=== PATIENT | male | born 1960 | race Caucasian/White ===

== ENCOUNTER 2021-01-01 19:39 | Emergency (ER) | payer SELFPAY ==
--- NOTE | 2021-01-01 19:57 | PC.NURSE ---
called in to triage. no response. will try again.
[2021-01-01 20:04] VITALS: BP 128/88; BP 140/85; PULSE 69; PULSE 74; RESP 16; TEMP 36.2; O2SAT 93; O2SAT 96; BMI 20.5
[2021-01-01 22:00] VITALS: BP 121/81; PULSE 67; RESP 14; O2SAT 97
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
--- NOTE | 2021-01-02 01:30 | PC.NURSE ---
Pt rousable to verbal stimuli. airway patent. pt denies needs.
--- NOTE | 2021-01-02 02:08 | ED_ITS ---
HPI - Alcohol General Chief Complaint: ETOH/Substance Use Stated Complaint: etoh Time Seen by Provider: 01/02/21 00:05 Source: patient Mode of arrival: ambulatory Limitations: no limitations History of Present Illness HPI narrative: 60-year-old male who presents emergency department for evaluation alcohol intoxication. The patient states that he was drinking a large amount of alcohol today and he started drinking 11:00 a.m.. The patient initially refused to answer questions but he appeared acutely intoxicated. The patient states that he is homeless. The patient told me that the is not interested in getting into a detox program. He denied fever, chills, chest pain, shortness of breath, abdominal pain, nausea, vomiting, changes bowel movements. Related Data Allergies Allergy/AdvReac Type Severity Reaction Status Date / Time Sulfa (Sulfonamide Allergy Unknown Verified 01/01/21 20:08 Antibiotics) Review of Systems Review of Systems: Yes all other systems are reviewed and are negative PMFSH Past Medical History [facility] Narrative: Social history: Patient states that he is homeless. He does smoke cigarettes. He states that he drinks alcohol daily. He denies drug use. Medical History Asthma Social History Social History Advance Directives: No Advance Directives Information Provided: No Physical Exam Vital Signs: Vital Signs: Last Vital Signs Temp 97.2 F 01/01/21 20:04 Pulse 67 01/01/21 22:00 Resp 14 01/01/21 22:00 BP 121/81 01/01/21 22:00 Pulse Ox 97 01/01/21 22:00 Body Mass Index 20.5 Const: Other: Disheveled, acutely intoxicated male, initially uncooperative and would not answer questions. General: cooperative and no acute distress Orientation/consciousness: oriented to person and oriented to place Limitations: no limitations HENMT: Head: Yes normal to inspection, Yes normocephalic and Yes atraumatic Ears: external ears normal General nose exam: Normal external nose present Face and sinus: Yes normal facial exam Mouth: Normal oral and palatal mucosa present Throat: Yes posterior oropharynx normal Eyes: General: appearance normal, both eyes and all related structures Pupils: Equal, round and reactive pupils present Neck: Neck: Yes normal visual inspection, Yes no lymphadenopathy, Yes trachea midline and Yes supple Chest: Chest palpation & inspection: normal inspection of the chest and normal palpation of entire chest wall Resp: Effort & Inspection: normal respiratory effort and able to speak in complete sentences Auscultation: clear to auscultation bilaterally Cardio: Rate: regular rate Rhythm: regular rhythm Heart sounds: S1 normal heart sound present, S2 normal heart sound present and no murmurs GI: Inspection: Yes normal to inspection Palpation (GI): Soft to palpation, nontender and no guarding Auscultation: normal bowel sounds : General: Yes no CVA tenderness Back/Spine/Pelvis: Back: no CVA tenderness Skin: General skin exam: no rashes or lesions noted Neuro: General: oriented to person and oriented to place Cranial nerves: Yes CN's II-XII intact bilaterally and Yes Equal, round and reactive pupils present Motor exam (neuro): 5/5 motor strength present throughout Extrem: General: Yes normal to inspection Psych: Other: Unkempt disheveled, acutely intoxicated Course Course Course Narrative: 60-year-old male who presents emergency department for eval uation of acute alcohol intoxication. Patient was obviously intoxicated on initial presentation and refused to answer questions. Patient eventually told me that he was drinking alcohol and that he is homeless. The patient will be kept in the emergency department until he is sober. 2:15 a.m.: The patient is awake however he falls back asleep and refuses to answer questions. At this point, the patient will be kept in the emergency department in the morning and then discharged in the morning. Physician observation started at 2:15 a.m. Patient placed in physician observation because acute alcohol intoxication and need for observation to sober. Neuro: nonfocal, CV RRR, Lungs clear. The patient was turned over to my colleague, Dr. Yin Preston will re-evaluate the patient in the morning and determine disposition. Discharge Plan Discharge Clinical Impression: Alcoholic intoxication, Homeless Patient Disposition: Home, Self-Care Instructions: Abuse of Alcohol (ED) Additional Instructions: You should consider getting into detox program to help with your alcohol use disorder. Follow-up with your doctor in 2 days. Please return to the emergency department if your symptoms get worse or if you develop any symptoms that are concerning to you.
[2021-01-02 04:07] VITALS: BP 116/74; PULSE 88; RESP 16; O2SAT 97
== END 2021-01-02 05:58 | disposition home or self-care (01) ==
PROVIDERS: Emergency Provider Emergency Medicine Emergency Medical Services
DX: F10.220 Alcohol dependence with intoxication, uncomplicated (principal); Y90.9 Presence of alcohol in blood, level not specified; Z59.0 Homelessness; F17.210 Nicotine dependence, cigarettes, uncomplicated
CPT/HCPCS: 99283; 99284

== ENCOUNTER 2021-01-02 19:04 | Emergency (ER) | payer SELFPAY ==
[2021-01-02 19:14] VITALS: BP 119/73; PULSE 86; RESP 16; TEMP 35.7; O2SAT 94; BMI 24.0
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
--- NOTE | 2021-01-03 01:43 | PC.NURSE ---
Patient woke up and asked for urinal. Upset that he was asked to walk to bathroom. Ambulates with steady gait. calling staff Lia.
== END 2021-01-03 01:43 | disposition home or self-care (01) ==
PROVIDERS: Emergency Provider Emergency Medicine
DX: F10.220 Alcohol dependence with intoxication, uncomplicated (principal); Y90.9 Presence of alcohol in blood, level not specified; Z59.0 Homelessness
CPT/HCPCS: 99283

== ENCOUNTER 2021-01-05 08:51 | Emergency (ER) | payer SELFPAY ==
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
[2021-01-05 09:06] VITALS: BP 130/82; PULSE 70; O2SAT 94
[2021-01-05 09:13] VITALS: BP 114/75; PULSE 62; RESP 16; TEMP 36.1; O2SAT 99; BMI 22.0
--- NOTE | 2021-01-05 09:52 | PC.NURSE ---
THIS RN IS ATTEMPTING TO GIVE THE PT HIS FOOD MERRY, PT REFUSING TO EAT AT THIS TIME, REFUSING TO TALK TO THIS RN, HAS HIS BLANKET OVER HIS HEAD
[2021-01-05 10:53] LABS: MANUAL DIFF FLAG NO
[2021-01-05 10:54] LABS: Basophils Percent Auto 0.8 % (0-2); Eosinophils Absolute Auto 0.1 X10*3/uL (0.0-0.4); Eosinophils Percent Auto 1.6 % (0-4); Hematocrit 41.9 % (42-52); Hemoglobin 13.5 g/dl (14.0-18.0); Imm Gran Abs Auto 0.01 X10*3/uL (0.00-0.03); Imm Gran Pct Auto 0.3 % (0.0-0.4); Lymphocytes Absolute Auto 1.2 X10*3/uL (1.2-4.9); Mean Corpuscular HGB Conc 32.2 g/dl (31.0-36.0); Mean Corpuscular Hemoglobin 28.8 pg (27.0-33.0); Mean Corpuscular Volume 89.3 fL (80-98); Mean Platelet Volume 8.4 fL (9.4-12.4); Monocytes Absolute Auto 0.4 X10*3/uL (0.1-1.2); Monocytes Percent Auto 10.4 % (2-11); Neutrophils Absolute Auto 2.1 X10*3/uL (2.0-8.3); Neutrophils Percent Auto 54.9 % (45-73); Platelet Count 232 X10*3/uL (160-400); Red Blood Count 4.69 X10*6/uL (4.60-5.80); Red Cell Distribution Width 16.9 % (11.0-16.0); White Blood Count 3.8 X10*3/uL (4.8-10.8)
[2021-01-05 11:16] LABS: COVID-19 Test Negative (Negative); IDNOW Serial# 9DD0AD1C
[2021-01-05 11:21] LABS: Ethanol 106 mg/dL
[2021-01-05 11:26] LABS: Alanine Aminotransferase 33 U/L (0-40); Albumin Level 3.9 g/dL (3.5-5.0); Alkaline Phosphatase 133 U/L (39-117); Anion Gap 20 (12-20); Aspartate Amino Transferase 81 U/L (5-37); Bilirubin Direct 0.4 mg/dL (0.0-0.5); Bilirubin Total 0.8 mg/dL (0.0-1.0); Blood Urea Nitrogen 6 mg/dL (9-16); Carbon Dioxide 19 mmol/L (22-29); Chloride 106 mmol/L (96-108); Creatinine Clr Calc Pharmacy 109.3; Estimated Glomerular Filt Rate > 60; Glucose Random 72 mg/dL (60-115); Magnesium 1.8 mg/dL (1.6-2.6); Potassium 3.5 mmol/L (3.3-5.1); Sodium 141 mmol/L (135-145); Total Protein 8.6 g/dL (6.5-8.0)
[2021-01-05 11:42] VITALS: RESP 18
--- NOTE | 2021-01-05 11:43 | PC.NURSE ---
patient sleeping, wakes to stimulus, refusing to answer questions and turns away, rr 18, will continue to monitor.
[2021-01-05 13:44] VITALS: BP 133/96; PULSE 77; RESP 18; TEMP 36.6; O2SAT 98
== END 2021-01-05 16:32 | disposition home or self-care (01) ==
PROVIDERS: Emergency Provider Emergency Medicine
DX: F10.129 Alcohol abuse with intoxication, unspecified (principal); Y90.5 Blood alcohol level of 100-119 mg/100 ml; I25.10 Atherosclerotic heart disease of native coronary artery without angina pectoris; F17.200 Nicotine dependence, unspecified, uncomplicated; Z71.6 Tobacco abuse counseling; Z79.899 Other long term (current) drug therapy; Z20.822 Contact with and (suspected) exposure to COVID-19; Z71.41 Alcohol abuse counseling and surveillance of alcoholic
CPT/HCPCS: 36415; 80048; 80076; 82077; 83735; 85025; 87635; 99284

== ENCOUNTER 2021-01-06 20:14 | Emergency (ER) | payer SELFPAY ==
[2021-01-06 20:45] VITALS: BP 110/70; PULSE 72; RESP 16; TEMP 36; O2SAT 95; BMI 22.5
--- NOTE | 2021-01-06 21:10 | ED.ALCOHOL ---
HPI - Alcohol General Chief Complaint: ETOH/Substance Use Stated Complaint: etoh Time Seen by Provider: 01/06/21 21:10 Source: patient and EMS Mode of arrival: EMS Limitations: altered mental status History of Present Illness MD complaint: alcohol intoxication Last drink: Just prior to admission Chronic alcohol use: Yes Previous visits for alcohol intoxication: Yes Recent trauma: No Associated symptoms: denies other symptoms Treatments prior to arrival: none Related Data Allergies Allergy/AdvReac Type Severity Reaction Status Date / Time Sulfa (Sulfonamide Allergy Unknown Verified 01/01/21 20:08 Antibiotics) Review of Systems Review of Systems: ROS unable to be obtained due to ETOH intoxication [facility] Past Medical History Attestation statement: The following information was validated with the patient. Medical History Alcoholism Asthma Coronary artery disease Surgical History Hx of CABG Social History Social History Housing: Homeless Alcohol intake: current Patient Tobacco Use Status: Current everyday Tobacco user Advance Directives: No Physical Exam Vital Signs: Vital Signs: Last Vital Signs Temp 96.8 F 01/06/21 20:45 Pulse 72 01/06/21 20:45 Resp 16 01/07/21 00:00 BP 110/70 01/06/21 20:45 Pulse Ox 95 01/06/21 20:45 Body Mass Index 22.5 Appearance: Alert. Oriented X3. No acute distress. ETOH odor, unkempt Eyes: Pupils equal, round and reactive to light. ENT: Pharynx normal. Neck: Normal inspection. Neck supple. CVS: Normal heart rate and rhythm. Pulses normal. Respiratory: No respiratory distress. Breath sounds normal. Abdomen: Soft and nontender. Skin: Skin warm and dry. Normal skin color. Normal skin turgor. Extremities: No lower extremity edema. No calf ttp Neuro: Oriented X 3. No motor deficit. No sensory deficit. Course Course Course Narrative: signed out pending clinical sobriety MDM - Alcohol MDM Narrative Medical decision making narrative: 60 yo male with ETOH abuse no trauma reported he is calm and cooperative, new to the area - no SI/HI will observe until clinically sober, seen for the same this past week. Discharge Plan Discharge Clinical Impression: Alcoholic intoxication Qualifiers: Complication of substance-induced condition: uncomplicated Qualified Code(s): F10.920 - Alcohol use, unspecified with intoxication, uncomplicated Patient Disposition: Home, Self-Care Instructions: Alcohol Intoxication (ED), Abuse of Alcohol (ED) Additional Instructions: return to ED for any worsening symptoms or concerns
[2021-01-07] VITALS: RESP 16
[2021-01-07 02:00] VITALS: RESP 16
[2021-01-07 02:26] VITALS: BP 119/77; PULSE 72; RESP 16; TEMP 36.8; O2SAT 97
[2021-01-07 04:00] VITALS: RESP 16
== END 2021-01-07 05:58 | disposition home or self-care (01) ==
PROVIDERS: Emergency Provider Emergency Medicine
DX: F10.120 Alcohol abuse with intoxication, uncomplicated (principal); Y90.9 Presence of alcohol in blood, level not specified; Z59.0 Homelessness
CPT/HCPCS: 99282; 99285

== ENCOUNTER 2021-01-07 17:37 | Emergency (ER) | payer SELFPAY ==
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
[2021-01-07 17:59] VITALS: BP 90/60; BP 96/63; PULSE 76; PULSE 77; RESP 16; TEMP 36.3; O2SAT 100; O2SAT 98; BMI 25.0
== END 2021-01-07 22:24 | disposition home or self-care (01) ==
PROVIDERS: Emergency Provider Internal Medicine
DX: F10.220 Alcohol dependence with intoxication, uncomplicated (principal); Y90.9 Presence of alcohol in blood, level not specified
CPT/HCPCS: 99283

== ENCOUNTER 2021-01-10 15:21 | Emergency (ER) | payer SELFPAY ==
[2021-01-10 15:31] VITALS: BP 110/75; PULSE 85; O2SAT 95
[2021-01-10 15:32] VITALS: BMI 20.3
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
--- NOTE | 2021-01-10 18:16 | ED.ALCOHOL ---
HPI - Alcohol General Chief Complaint: ETOH/Substance Use Stated Complaint: ETOH Time Seen by Provider: 01/10/21 18:11 History of Present Illness HPI narrative: 60-year-old history of alcohol abuse found on the street. Patient has no specific complaints. Related Data Allergies Allergy/AdvReac Type Severity Reaction Status Date / Time Sulfa (Sulfonamide Allergy Unknown Verified 01/07/21 17:58 Antibiotics) Review of Systems Review of Systems: No chest pain or shortness of breath no trauma. All systems reviewed otherwise negative [facility] Past Medical History Medical History Alcoholism Asthma Coronary artery disease Surgical History Hx of CABG Social History Social History Housing: Homeless Alcohol intake: current Patient Tobacco Use Status: Current everyday Tobacco user Advance Directives: No Advance Directives Information Provided: No Physical Exam Vital Signs: Vital Signs: Last Vital Signs Temp 98 F 01/10/21 18:22 Pulse 97 01/10/21 18:22 Resp 17 01/10/21 18:22 BP 168/98 H 01/10/21 18:22 Pulse Ox 98 01/10/21 18:22 Body Mass Index 20.3 Appearance: Alert. Oriented X3. No acute distress. Eyes: Pupils equal, round and reactive to light. ENT: Pharynx normal. Neck: Normal inspection. Neck supple. No lymph nodes noted. No crepitus CVS: Normal heart rate and rhythm. Pulses normal. Normal S1 and S2 Respiratory: No respiratory distress. Breath sounds normal. No Wheezing. No rales Abdomen: Soft and nontender. No rigidity. No distention. good BS x4 Skin: Skin warm and dry. Normal skin color. Normal skin turgor. Extremities: No lower extremity edema. Neurovascular intact to all extremities. No Lacerations. No Rash Neuro: Oriented X 3. No motor deficit. No sensory deficit. Moving all extermities. No slurred speech MDM - Alcohol MDM Narrative Medical decision making narrative: Patient awaiting sobering Patient awake alert wants to leave. Ambulatory without any difficulties. Not suicidal not homicidal. Discharge Plan Discharge Clinical Impression: Alcoholic intoxication Patient Disposition: Home, Self-Care Instructions: Alcohol Intoxication (ED), Alcohol Use Disorder (ED), Abuse of Alcohol (ED) Referrals: Physician,Unknown [Primary Care Provider] - 2 days (Please stop drinking. Please go to detox.)
[2021-01-10 18:22] VITALS: BP 168/98; PULSE 97; RESP 17; TEMP 36.6; O2SAT 98
--- NOTE | 2021-01-10 18:42 | PC.NURSE ---
patient being loud and verbally abusive to staff, attempted to leave, security was called to bring patient back to bed, pt continues to yell wanting to discharge.
== END 2021-01-10 18:55 | disposition home or self-care (01) ==
PROVIDERS: Emergency Provider Emergency Medicine Emergency Medical Services
DX: F10.220 Alcohol dependence with intoxication, uncomplicated (principal); Y90.9 Presence of alcohol in blood, level not specified
CPT/HCPCS: 99282; 99283

== ENCOUNTER 2021-01-10 23:15 | Emergency (ER) | payer SELFPAY ==
[2021-01-10 23:23] VITALS: BP 112/64; BP 118/76; PULSE 102; PULSE 80; RESP 16; O2SAT 95; O2SAT 97; BMI 20.9
[2021-01-11] VITALS: RESP 16
--- NOTE | 2021-01-11 00:43 | ED.ALCOHOL ---
HPI - Alcohol General Chief Complaint: ETOH/Substance Use Stated Complaint: ETOH Time Seen by Provider: 01/11/21 00:42 Source: EMS Mode of arrival: EMS History of Present Illness HPI narrative: Patient with alcohol abuse intoxicated was just here and discharged at 20:00 came back by ambulance for being intoxicated walking at a gas station. No signs of injury or fall patient intoxicated but alert Related Data Allergies Allergy/AdvReac Type Severity Reaction Status Date / Time Sulfa (Sulfonamide Allergy Unknown Verified 01/07/21 17:58 Antibiotics) Review of Systems Review of Systems: Patient refused to answer Yes Unobtainable due to mental status PMFSH Past Medical History Medical History Alcoholism Asthma Coronary artery disease Surgical History Hx of CABG Social History Social History Housing: Homeless Alcohol intake: current Alcohol intake frequency: 3 or more drinks per day Alcohol type: hard liquor Patient Tobacco Use Status: Current everyday Tobacco user Smoked in Last 30 Days: No Use of substances other than those prescribed or required for medical reasons: No Advance Directives: No Advance Directives Information Provided: No Physical Exam Vital Signs: Vital Signs: Last Vital Signs Pulse 102 H 01/10/21 23:23 Resp 16 01/11/21 00:00 BP 112/64 01/10/21 23:23 Pulse Ox 95 01/10/21 23:23 Body Mass Index 20.9 Appearance: Intoxicated ,opening his eyes refused to answer, no acute distress. Eyes: PERRLA, No Nystagmus HEENT: Pharynx normal. Oral Mucosa moist intoxicated AT, [place] Neck: Normal inspection. Neck supple. CVS: Normal heart rate and rhythm. Pulses normal. Respiratory: No respiratory distress. Equal air entry bilateral, no wheezing/rales/rhonchi Abdomen: Soft and nontender. Bowel sounds are present, Skin: Skin warm and dry. Normal skin color. Normal skin turgor. Extremities: No lower extremity edema. No calf tenderness Neuro: Oriented X 3. No motor deficit. MDM - Alcohol MDM Narrative Medical decision making narrative: Patient was sleeping in the bed when he came and got up went to the bathroom without any assistance and was trying to smoke at this time patient has stable vitals with discharge patient home Differential Diagnosis Differential diagnosis: Likely alcohol intoxication Discharge Plan Discharge Clinical Impression: Alcoholic intoxication Qualifiers: Complication of substance-induced condition: uncomplicated Qualified Code(s): F10.920 - Alcohol use, unspecified with intoxication, uncomplicated Patient Disposition: Home, Self-Care Instructions: Alcohol Intoxication (ED) Additional Instructions: Follow with detox Interventions: ED Discharge Assessment Last Done: 01/11/21 00:48 Discharge Date/Time: 01/11/21 00:51
== END 2021-01-11 00:51 | disposition home or self-care (01) ==
LOC: HO.ED 01-11 00:45
PROVIDERS: Emergency Provider Internal Medicine
DX: F10.920 Alcohol use, unspecified with intoxication, uncomplicated (principal); I25.10 Atherosclerotic heart disease of native coronary artery without angina pectoris; Y90.9 Presence of alcohol in blood, level not specified; F17.200 Nicotine dependence, unspecified, uncomplicated; Z71.6 Tobacco abuse counseling; Z59.0 Homelessness
CPT/HCPCS: 99282; 99284

== ENCOUNTER 2021-01-11 12:45 | Emergency (ER) | payer SELFPAY ==
[2021-01-11 13:01] VITALS: BP 123/82; BP 133/76; PULSE 79; PULSE 86; RESP 16; TEMP 37.2; O2SAT 96; O2SAT 98; BMI 24.9
--- NOTE | 2021-01-11 13:26 | PC.NURSE ---
Patient is asleep on stretcher in no distress.
--- NOTE | 2021-01-11 15:27 | ED.ALCOHOL ---
HPI - Alcohol General Chief Complaint: ETOH/Substance Use Stated Complaint: HOT, ETOH Time Seen by Provider: 01/11/21 14:43 History of Present Illness HPI narrative: According to the triage nurse, the patient was found in an intersection near the hospital. Patient admitted to using alcohol, drank beer today. When I went to look for the patient, it was noted that the patient was not in his room, patient was not evaluated by me. I discussed that with his nurse and with the charge nurse. Patient eloped Related Data Allergies Allergy/AdvReac Type Severity Reaction Status Date / Time Sulfa (Sulfonamide Allergy Unknown Verified 01/07/21 17:58 Antibiotics) PMFSH Past Medical History Medical History Alcoholism Asthma Coronary artery disease Surgical History Hx of CABG Social History Social History Housing: Homeless Alcohol intake: current Alcohol intake frequency: 3 or more drinks per day Alcohol type: hard liquor Patient Tobacco Use Status: Current everyday Tobacco user Advance Directives: No Advance Directives Information Provided: No Physical Exam Vital Signs: Vital Signs: Last Vital Signs Temp 99 F 01/11/21 13:01 Pulse 79 01/11/21 13:01 Resp 16 01/11/21 13:01 BP 133/76 01/11/21 13:01 Pulse Ox 96 01/11/21 13:01 Body Mass Index 24.9 Discharge Plan Discharge Clinical Impression: Alcoholic intoxication Patient Disposition: Elopement
== END 2021-01-11 15:00 | disposition left against medical advice (07) ==
PROVIDERS: Emergency Provider Emergency Medicine
DX: F10.129 Alcohol abuse with intoxication, unspecified (principal); Y90.5 Blood alcohol level of 100-119 mg/100 ml; I25.10 Atherosclerotic heart disease of native coronary artery without angina pectoris; F17.200 Nicotine dependence, unspecified, uncomplicated; Z71.6 Tobacco abuse counseling; Z59.0 Homelessness
CPT/HCPCS: 99282; 99283

== ENCOUNTER 2021-01-24 20:55 | Emergency (ER) | payer SELFPAY ==
[2021-01-24 21:02] VITALS: BP 110/76; PULSE 84; O2SAT 94
[2021-01-24 21:04] VITALS: BP 97/60; PULSE 74; RESP 16; TEMP 36.7; O2SAT 96; BMI 22.0
--- NOTE | 2021-01-24 21:15 | ED.ALCOHOL ---
HPI - Alcohol General Chief Complaint: ETOH/Substance Use Stated Complaint: Etoh Time Seen by Provider: 01/24/21 21:06 Source: patient and EMS Limitations: no limitations History of Present Illness HPI narrative: Patient comes to the emergency room by EMS, patient states that he does not know why somebody called the ambulance. Patient reports that he drank a large quantity of alcohol. Patient states he did not fall, no injuries. Patient is eating chips in bed. Patient has been evaluated in the emergency room multiple times for alcohol consumption. Related Data Allergies Allergy/AdvReac Type Severity Reaction Status Date / Time Sulfa (Sulfonamide Allergy Unknown Verified 01/07/21 17:58 Antibiotics) Review of Systems Review of Systems: Constitutional : No Weight loss, No Fever, No Chills, No Night Sweats, No Fatigue, No Malaise ENT/Mouth : No Hearing loss, No Ear Pain, No Nasal Congestion, No Sinus Pain, No Hoarseness, No sore throat, No Rhinorrhea, No Swallowing Difficulty Eyes: No Eye Pain, No Swelling, No Redness, No Foreign Body, No Discharge, No Vision Changes Cardiovascular : No Chest Pain, No SOB, No Dyspnea on Exertion, No Orthopnea, No Edema, No Palpitations Respiratory : No Cough, No Sputum, No Wheezing, No Smoke Exposure, No Dyspnea Gastrointestinal : No Nausea, No Vomiting, No Diarrhea, No Constipation, No abdominal Pain, No Hematochezia, No Melena Genitourinary : no irregular bleeding, No Dysuria, No Urinary Frequency, No Hematuria, No Urinary Incontinence, No Urgency, No Flank Pain, No Urinary Flow Changes, No Hesitancy Musculoskeletal : No joint pain, No Myalgias, No Joint Swelling Skin : No Skin Lesions, No rash Neuro : No Weakness, No Numbness, No Paresthesias, No Loss of Consciousness, No Dizziness, No Headache Psych : No Anxiety/Panic, No Depression, No SI/HI/AH/VH, No Social Issues, Heme/Lymph: No Bruising, No Bleeding,No Lymphadenopathy Endocrine : No Polyuria, No Polydipsia, No Temperature Intolerance PMFSH Past Medical History Medical History Alcoholism Asthma Coronary artery disease Surgical History Hx of CABG Social History Social History Housing: Homeless Alcohol intake: current Alcohol intake frequency: 3 or more drinks per day Alcohol type: hard liquor Patient Tobacco Use Status: Current everyday Tobacco user Advance Directives: No Advance Directives Information Provided: Yes Physical Exam Vital Signs: Vital Signs: Last Vital Signs Temp 98.1 F 01/24/21 21:04 Pulse 74 01/24/21 21:04 Resp 16 01/24/21 21:04 BP 97/60 01/24/21 21:04 Pulse Ox 98 01/25/21 03:16 Body Mass Index 22.0 Const: Other: Appearance: Alert. Oriented X3. No acute distress. Seems intoxicated, sitting in bed comfortably eating [employer] Eyes: Pupils equal, round and reactive to light. ENT: Pharynx normal. Neck: Normal inspection. Neck supple. No lymph nodes noted. No crepitus CVS: Normal heart rate and rhythm. Pulses normal. Normal S1 and S2 Respiratory: No respiratory distress. Breath sounds normal. No Wheezing. No rales Abdomen: Soft and nontender. No rigidity. No distention. good BS x4 Skin: Skin warm and dry. Normal skin color. Normal skin turgor. Extremities: No lower extremity edema. No Lacerations. No Rash Neuro: Oriented X 3. No motor deficit. No sensory deficit. Moving all extermities. No slurred speech. Course Course Course Narrative: Patient is intoxicated, patient will metabolize to freedom, then discharge, or he can get a sober ride. At this time, patient is stable. 21:15 physician observation was started Patient is awake, alert, patient is clinically sober. Patient being discharged Discharge Plan Discharge Clinical Impression: Alcoholic intoxication Patient Disposition: Home, Self-Care Instructions: Alcohol Intoxication (ED) Additional Instructions: Please follow-up with your primary care physician tomorrow. If you have any worsening or new symptoms, please return to the emergency room or call 911
[2021-01-25 03:16] VITALS: O2SAT 98
== END 2021-01-25 07:09 | disposition home or self-care (01) ==
PROVIDERS: Emergency Provider Emergency Medicine
DX: F10.220 Alcohol dependence with intoxication, uncomplicated (principal); Y90.9 Presence of alcohol in blood, level not specified; F17.210 Nicotine dependence, cigarettes, uncomplicated
CPT/HCPCS: 99284

== ENCOUNTER 2021-01-25 23:58 | Emergency (ER) | payer SELFPAY ==
[2021-01-26 00:01] VITALS: BP 128/77; PULSE 65; RESP 16; TEMP 35.7; O2SAT 97; BMI 24.3
--- NOTE | 2021-01-26 01:23 | ED.ALCOHOL ---
HPI - Alcohol General Chief Complaint: ETOH/Substance Use Stated Complaint: etoh Time Seen by Provider: 01/26/21 00:58 Source: patient and EMS Mode of arrival: EMS Limitations: no limitations History of Present Illness HPI narrative: Patient is a 60-year-old male who was brought in by ambulance after being found sleeping on the ground outside a bar. Apparently he asked to come to the hospital, for no specific reason. He has a history of being here multiple times for the similar complaint. Patient was difficult to arouse but upon sternal rub, he did wake up and say he drank too much, he did not have any pain anywhere and would like to sleep it off. Related Data Allergies Allergy/AdvReac Type Severity Reaction Status Date / Time Sulfa (Sulfonamide Allergy Unknown Verified 01/07/21 17:58 Antibiotics) Review of Systems Review of Systems: Yes all other systems are reviewed and are negative [facility] Past Medical History Medical History Alcoholism Asthma Coronary artery disease Surgical History Hx of CABG Social History Social History Housing: Homeless Alcohol intake: current Alcohol intake frequency: 3 or more drinks per day Alcohol type: hard liquor Patient Tobacco Use Status: Current everyday Tobacco user Physical Exam Vital Signs: Vital Signs: Last Vital Signs Temp 96.2 F L 01/26/21 00:01 Pulse 65 01/26/21 00:01 Resp 16 01/26/21 00:01 BP 128/77 01/26/21 00:01 Pulse Ox 97 01/26/21 00:01 Body Mass Index 24.3 Const: General: cooperative, comfortable, no acute distress and intoxicated appearing Nutritional Appearance: thin HENMT: Head: Yes normal to inspection, Yes No palpable skull fracture present, Yes normocephalic and Yes atraumatic General nose exam: Normal external nose present Eyes: General: appearance normal, both eyes and all related structures Pupils: Equal, round and reactive pupils present Neck: Neck: Yes normal visual inspection, Yes full ROM and Yes trachea midline Resp: Effort & Inspection: normal respiratory effort and able to speak in complete sentences Neuro: Cranial nerves: Yes Equal, round and reactive pupils present Psych: Appearance: disheveled Course Course Course Narrative: 60-year-old male brought in by ambulance after being found sleeping on the ground outside of a bar, he asked to be brought to the hospital. Physical exam unremarkable, patient clearly intoxicated, disheveled but denies any pain in vital signs are stable. The patient asked to sleep it off, will let him do so. Reevaluation(s) Reevaluation #1: sign out to Dr Preston Time: 02:01 Discharge Plan Discharge Clinical Impression: Alcoholic intoxication Qualifiers: Complication of substance-induced condition: uncomplicated Qualified Code(s): F10.920 - Alcohol use, unspecified with intoxication, uncomplicated Instructions: Alcohol Intoxication (ED), Alcohol Withdrawal (ED), Alcohol Use Disorder (ED) Additional Instructions: Please seek detox for your alcohol use disorder we can help you find a facility or you can do this on your own.
[2021-01-26 02:00] VITALS: RESP 18; O2SAT 100
[2021-01-26 04:00] VITALS: RESP 18; O2SAT 100
[2021-01-26 05:33] VITALS: BP 147/83; PULSE 55; RESP 18; O2SAT 100
--- NOTE | 2021-01-26 06:33 | PC.NURSE ---
pt given sandwhich orange juice and coffee. pt falls back to sleep easy.
--- NOTE | 2021-01-26 06:43 | PC.NURSE ---
pt ambulated in hallway with steady gait. food and drink given.
== END 2021-01-26 07:05 | disposition home or self-care (01) ==
PROVIDERS: Emergency Provider Student in an Organized Health Care Education/Training Program
DX: F10.220 Alcohol dependence with intoxication, uncomplicated (principal); Y90.9 Presence of alcohol in blood, level not specified; F17.210 Nicotine dependence, cigarettes, uncomplicated
CPT/HCPCS: 99284

== ENCOUNTER 2021-01-26 21:11 | Emergency (ER) | payer SELFPAY ==
[2021-01-26 21:16] VITALS: BP 102/68; BP 96/56; PULSE 82; PULSE 85; RESP 18; TEMP 37; O2SAT 95; O2SAT 98; BMI 23.1
[2021-01-26 21:36] VITALS: BP 96/56; PULSE 82; RESP 18; TEMP 37; O2SAT 98
--- NOTE | 2021-01-26 22:20 | ED_ITS ---
HPI - Alcohol General Chief Complaint: ETOH/Substance Use Stated Complaint: etoh Time Seen by Provider: 01/26/21 22:20 Source: EMS Mode of arrival: EMS Limitations: other (Patient intoxicated) History of Present Illness HPI narrative: Patient is a 60-year-old male with a past medical history of alcohol use disorder who was found intoxicated and [place] to [employer] in [place]. He was brought in by EMS. He is arousable to voice, smells of alcohol. Related Data Allergies Allergy/AdvReac Type Severity Reaction Status Date / Time Sulfa (Sulfonamide Allergy Unknown Verified 01/26/21 21:16 Antibiotics) Review of Systems Review of Systems: Yes all other systems are reviewed and are negative [facility] Past Medical History Medical History Alcoholism Asthma Coronary artery disease Surgical History Hx of CABG Social History Social History Housing: Homeless Alcohol intake: current Alcohol intake frequency: 3 or more drinks per day Alcohol type: beer and hard liquor Patient Tobacco Use Status: Current everyday Tobacco user Use of substances other than those prescribed or required for medical reasons: Unknown Advance Directives: No Advance Directives Information Provided: Yes Physical Exam Vital Signs: Vital Signs: Last Vital Signs Temp 97.7 F 01/26/21 22:31 Pulse 75 01/26/21 22:31 Resp 16 01/26/21 22:31 BP 124/79 01/26/21 22:31 Pulse Ox 98 01/26/21 22:31 Body Mass Index 23.1 Const: General: cooperative and intoxicated appearing Nutritional Appearance: average body habitus HENMT: Head: Yes normal to inspection, Yes No palpable skull fracture present, Yes normocephalic, Yes atraumatic, No abrasion, No contusion, No laceration and No scalp tenderness Ears: external ears normal General nose exam: Normal external nose present Face and sinus: Yes normal facial exam and Yes face symmetric Eyes: General: appearance normal, both eyes and all related structures Neck: Neck: Yes normal visual inspection Extrem: General: Yes normal to inspection Course Course Course Narrative: 60-year-old male found intoxicated and sleeping next to a gas station, brought in by EMS, arousable to voice, patient clearly intoxicated, vital signs were stable, will allow patient to sleep it off. Patient was just here last evening for the same thing. And has several visits to this hospital for the same thing. Reevaluation(s) Reevaluation #1: Patient to be discharged when clinically sober. Sign out to Dr. Preston. Time: 01:57 Discharge Plan Discharge Clinical Impression: Alcoholic intoxication Qualifiers: Complication of substance-induced condition: uncomplicated Qualified Code(s): F10.920 - Alcohol use, unspecified with intoxication, uncomplicated Patient Disposition: Home, Self-Care Instructions: Alcohol Intoxication (ED), Alcohol Withdrawal (ED), Alcohol Use Disorder (ED)
[2021-01-26 22:31] VITALS: BP 124/79; PULSE 75; RESP 16; TEMP 36.5; O2SAT 98
== END 2021-01-27 05:48 | disposition home or self-care (01) ==
PROVIDERS: Emergency Provider Emergency Medicine
DX: F10.220 Alcohol dependence with intoxication, uncomplicated (principal); Y90.9 Presence of alcohol in blood, level not specified; F17.210 Nicotine dependence, cigarettes, uncomplicated
CPT/HCPCS: 99284